=== PATIENT | female | born 1950 | race Hispanic/Latino ===

== ENCOUNTER 2018-05-25 09:30 | Inpatient (IN) | payer MEDICARE ==
[2018-05-25] MEDS ORDERED: NACL 0.9% 1,000 ML, .VANCOMYCIN VIAL 1,000 MG IR ONE (09:49)
[2018-05-25] MEDS ORDERED: NACL 0.45% 1000 ML 1,000 ML IV SCH (10:00)
[2018-05-25 10:17] LABS: Basophils % (Auto) 0.6 % (0.0-1.8); Eosinophils # (Auto) 0.3 K/mm3 (0.0-0.4); Eosinophils % (Auto) 5.3 % (0.0-4.3); Hematocrit 42.1 % (30.3-42.9); Hemoglobin 14.2 gm/dl (10.1-14.3); Lymphocytes # (Auto) 1.5 K/mm3 (1.2-5.4); Lymphocytes % (Auto) 30.1 % (13.4-35.0); Mean Corpuscular HGB Conc 34 % (30-34); Mean Corpuscular Volume 93 fl (79-97); Monocytes # (Auto) 0.3 K/mm3 (0.0-0.8); Monocytes % (Auto) 6.5 % (0.0-7.3); Platelet Count 123 K/mm3 (140-440); Red Blood Count 4.52 M/mm3 (3.65-5.03); Red Cell Distribution Width 14.3 % (13.2-15.2)
[2018-05-25 10:27] LABS: INR 0.95 (0.87-1.13)
[2018-05-25 10:28] LABS: Partial Thromboplastin Time 23.2 Sec. (24.2-36.6)
[2018-05-25 10:33] LABS: BUN/Creatinine Ratio 16; Blood Urea Nitrogen 14 mg/dL (7-17); Calcium 9.3 mg/dL (8.4-10.2); Hemolysis Index 14
--- NOTE | 2018-05-25 11:38 | XRay Report ---
AP CHEST: HISTORY: Wheezing No comparison. Heart size is at the upper limits of normal or mildly increased. Normal mediastinal contour. The lungs are adequately aerated. No evidence for pneumonia, mass or advanced parenchymal disease. No pleural effusion or pneumothorax. The bony structures are grossly intact. IMPRESSION: Borderline heart size. Lungs clear.
--- NOTE | 2018-05-25 11:45 | Consultation ---
History of Present Illness Consult date: 05/25/18 Requesting physician: SAUNDRA TOBIAS Consult reason: congestive heart failure History of present illness: The pt is a 67 YO female with a past medical history of dilated NICMP, chronic systolic heart failure, hypothyroidism, CKD, mild CAD, morbid obesity, statin intolerance, asthma. She is followed in our office by Dr. Urbina. She presented today for scheduled OP AICD implantation. She reported c/o upper respiratory t ract infection symptoms and SOB for the past 2 weeks for which she was prescribed Z-pack. She also c/o wheezing and orthopnea. AICD implantation was cancelled and she has been admitted for further management. She denies any chest pain, palpitations, n/v, diaphoresis, dizziness or syncope. LHC 09/2016 showed very mild CAD, severely dilated LV, EF 25%. Echo 04/2018 showed EF 25-30%, mod MR, mod TR, mild to mod pulm HTN, trace posterior pericardial effusion. Past History Past Medical History: heart failure Medications and Allergies Allergies Allergy/AdvReac Type Severity Reaction Status Date / Time meperidine [From Demerol] Allergy Dizziness Unverified 05/25/18 09:31 Home Medications Medication Instructions Recorded Confirmed Last Taken Type Aspirin [Lo-Dose Aspirin EC] 81 mg PO DAILY 05/25/18 05/25/18 05/24/18 History Benzonatate [Tessalon Perles] 100 mg PO Q8HR 05/25/18 05/25/18 05/24/18 History Budesonide/Formoterol Fumarate 2 puff IH BID 05/25/18 05/25/18 05/25/18 10:00 History [Symbicort 160-4.5 Mcg Inhaler] Carvedilol [Coreg] 3.125 mg PO BID 05/25/18 05/25/18 05/24/18 History Furosemide [Lasix] 20 mg PO Q48HR 05/25/18 05/25/18 05/24/18 History Levothyroxine [Synthroid] 25 mcg PO QAM 05/25/18 05/25/18 05/25/18 04:30 History Loratadine [Claritin] 10 mg PO QHS 05/25/18 05/25/18 05/24/18 History Potassium Chloride [K-Dur] 10 meq PO QDAY 05/25/18 05/25/18 05/24/18 History Active Meds: Active Medications Sodium Chloride (Nacl 0.45% 1000 Ml) 1,000 mls @ 50 mls/hr IV DIRECT SHOSHANA Review of Systems Constitutional: no weight loss, no weight gain, no fever, no chills, no sweats Ears, nose, mouth and throat: no ear pain, no nose pain, no sinus pressure, no sinus pain Cardiovascular: orthopnea, shortness of breath, dyspnea on exertion, no chest pain, no palpitations, no rapid/irregular heart beat, no edema, no syncope, no lightheadedness, no leg edema Respiratory: cough, shortness of breath, dyspnea on exertion, congestion, wheezing, no pain on inspiration Gastrointestinal: no abdominal pain, no nausea, no vomiting, no diarrhea, no constipation, no change in bowel habits Genitourinary Female: no pelvic pain, no flank pain, no dysuria, no urinary frequency, no urgency Musculoskeletal: no neck stiffness, no neck pain, no shooting arm pain, no arm numbness/tingling, no low back pain, no shooting leg pain Integumentary: no rash, no pruritis, no redness, no sores, no wounds Neurological: no head injury, no paralysis, no weakness, no parathesias, no numbness, no tingling, no seizures, no syncope Psychiatric: no anxiety Endocrine: no cold intolerance, no heat intolerance Hematologic/Lymphatic: no easy bruising, no easy bleeding Allergic/Immunologic: wheezing Physical Examination Vital Signs Temp Pulse Resp BP Pulse Ox 98.6 F 92 H 18 133/75 98 05/25/18 10:13 05/25/18 10:13 05/25/18 10:13 05/25/18 10:13 05/25/18 10:13 General appearance: no acute distress HEENT: Positive: PERRL, Normocephaly, Mucus Membranes Moist Neck: Positive: neck supple, trachea midline Cardiac: Positive: Reg Rate and Rhythm, S1/S2 Lungs: Positive: Decreased Breath Sounds, Wheezes Neuro: Positive: Grossly Intact Abdomen: Positive: Soft. Negative: Tender Skin: Negative: Rash, Wound Musculoskeletal: No Pain Extremities: Absent: edema Results 05/25/18 10:12 05/25/18 10:12 Coagulation 05/25/18 Range/Units 10:12 PT 13.1 (12.2-14.9) Sec. INR 0.95 (0.87-1.13) APTT 23.2 L (24.2-36.6) Sec. CBC 05/25/18 Range/Units 10:12 WBC 4.9 (4.5-11.0) K/mm3 RBC 4.52 (3.65-5.03) M/mm3 Hgb 14.2 (10.1-14.3) gm/dl Hct 42.1 (30.3-42.9) % Plt Count 123 L (140-440) K/mm3 Lymph # 1.5 (1.2-5.4) K/mm3 [place] # 0.3 (0.0-0.8) K/mm3 Eos # 0.3 (0.0-0.4) K/mm3 Baso # 0.0 (0.0-0.1) K/mm3 Comprehensive Metabolic Panel 05/25/18 Range/Units 10:12 Sodium 145 (137-145) mmol/L Potassium 4.3 (3.6-5.0) mmol/L Chloride 105.4 (98-107) mmol/L Carbon Dioxide 26 (22-30) mmol/L BUN 14 (7-17) mg/dL Creatinine 0.9 (0.7-1.2) mg/dL Glucose 117 H (65-100) mg/dL Calcium 9.3 (8.4-10.2) mg/dL - Imaging and Cardiology Echo: report reviewed (04/2018 showed EF 25-30%, mod MR, mod TR, mild to mod pulm HTN, trace posterior pericardial effusion. ) Cardiac cath: report reviewed (09/2016 showed very mild CAD, severely dilated LV, EF 25%.) EKG: report reviewed, image reviewed EKG interpretations - Telemetry EKG Rhythm: Sinus Rhythm - EKG Sinus rhythms and dysrhythmias: sinus rhythm Assessment and Plan Admit to tele per hospitalist. Initiate IV diuretics. Resume home cardiac regimen. AICD implantation to be rescheduled for later date as OP. The patient has been seen in conjunction with Dr. Downey who agrees with the assessment and plan of care. - Patient Problems (1) Acute on chronic HFrEF (heart failure with reduced ejection fraction) Current Visit: Yes Status: Acute (2) Upper respiratory infection Current Visit: Yes Status: Acute (3) Cardiomyopathy, dilated, nonischemic Current Visit: Yes Status: Chronic (4) Mild coronary artery disease Current Visit: Yes Status: Chronic (5) CKD (chronic kidney disease) Current Visit: Yes Status: Chronic (6) Hypothyroidism Current Visit: Yes Status: Chronic (7) Obesity Current Visit: Yes Status: Chronic (8) Statin intolerance Current Visit: Yes Status: Chronic
[2018-05-25] MEDS: LASIX ONE ×2 (12:06→12:34)
--- NOTE | 2018-05-25 12:11 | History and Physical Report ---
History of Present Illness Chief complaint: I keep coughing History of present illness: 67 YO Female with MO, CHF, Hypothyroid, Asthma, Allergic rhinitis, CAD admitted directly to the hospital medicine service at the request of [facility]. Pt was scheduled for ICD implantation today, but complained of shortness of breath, and nonproductive cough over the past 1 week. Pt acknowledges shortness of breath, wheezing, nonproductive cough. Pt acknowledges persistent symptoms with outpatient antibiotic therapy over the past 2 weeks. Pt found to have symptoms consistent with Bronchitis. Pt admitted to telemetry and treated with supportive care. Past History Past Medical History: heart failure, hypothyroidism, other (Asthma, MO) Past Surgical History: No surgical history, Other (reviewed) Social history: , lives with family. denies: smoking, alcohol abuse, prescription drug abuse Family history: CAD, hypertension Medications and Allergies Allergies Allergy/AdvReac Type Severity Reaction Status Date / Time meperidine [From Demerol] Allergy Dizziness Verified 05/25/18 14:07 Home Medications Medication Instructions Recorded Confirmed Last Taken Type Aspirin [Lo-Dose Aspirin EC] 81 mg PO DAILY 05/25/18 05/25/18 05/24/18 History Benzonatate [Tessalon Perles] 100 mg PO Q8HR 05/25/18 05/25/18 05/24/18 History Budesonide/Formoterol Fumarate 2 puff IH BID 05/25/18 05/25/18 05/25/18 10:00 History [Symbicort 160-4.5 Mcg Inhaler] Carvedilol [Coreg] 3.125 mg PO BID 05/25/18 05/25/18 05/24/18 History Furosemide [Lasix] 20 mg PO Q48HR 05/25/18 05/25/18 05/24/18 History Levothyroxine [Synthroid] 25 mcg PO QAM 05/25/18 05/25/18 05/25/18 04:30 History Loratadine [Claritin] 10 mg PO QHS 05/25/18 05/25/18 05/24/18 History Potassium Chloride [K-Dur] 10 meq PO QDAY 05/25/18 05/25/18 05/24/18 History Active Meds: Active Medications Aspirin (Halfprin Ec) 81 mg PO DAILY SHOSHANA Carvedilol (Coreg) 3.125 mg PO BID SHOSHANA Furosemide (Lasix) 20 mg IV ONCE ONE Stop: 05/25/18 12:31 Levothyroxine Sodium (Synthroid) 25 mcg PO DAILY@0600 [facility] Loratadine (Claritin) 10 mg PO QHS [facility] Potassium Chloride (K-Dur) 10 meq PO QDAY [facility] Review of Systems Constitutional: no weight loss, no weight gain, no fever, no chills Ears, nose, mouth and throat: no ear pain, no ear discharge, no tinnitis, no decreased hearing, no nose pain, no nasal congestion Breasts: no change in shape Respiratory: cough Gastrointestinal: no abdominal pain, no nausea, no vomiting, no diarrhea Genitourinary Female: no dysmenorrhea, no pelvic pain, no flank pain, no menorrhagia, no dysuria, no urinary frequency Rectal: no pain, no incontinence, no bleeding Musculoskeletal: no neck stiffness, no neck pain, no shooting arm pain, no arm numbness/tingling, no low back pain Integumentary: no rash, no pruritis, no redness, no sores, no wounds Neurological: no transient paralysis, no paralysis, no weakness, no parathesias, no numbness, no tingling Psychiatric: no anxiety, no memory loss, no change in sleep habits, no sleep disturbances, no insomnia, no hypersomnia Endocrine: no cold intolerance, no heat intolerance, no polyphagia, no excessive thirst, no polydipsia, no polyuria Hematologic/Lymphatic: no easy bruising, no easy bleeding Allergic/Immunologic: no urticaria, no allergic rhinitis, no wheezing Exam - Constitutional Vitals: Temp Pulse Resp BP Pulse Ox 98.6 F 92 H 18 133/75 98 05/25/18 10:13 05/25/18 10:13 05/25/18 10:29 05/25/18 10:13 05/25/18 10:13 General appearance: Present: mild distress - EENT Eyes: Present: PERRL ENT: hearing intact, clear oral mucosa - Neck Neck: Present: supple, normal ROM - Respiratory Respiratory effort: normal Respiratory: bilateral: CTA - Cardiovascular Heart Sounds: Present: S1 & S2. Absent: rub, click - Extremities Extremities: pulses symmetrical Extremity abnormal: edema Peripheral Pulses: within normal limits - Abdominal General gastrointestinal: Present: soft, non-tender, non-distended, normal bowel sounds Female genitourinary: Present: normal - Integumentary Integumentary: Present: clear, warm, dry - Musculoskeletal Musculoskeletal: generalized weakness - Psychiatric Psychiatric: appropriate mood/affect, intact judgment & insight - Neurologic Neurologic: CNII-XII intact, moves all extremities Results - Labs CBC & Chem 7: 05/25/18 10:12 05/25/18 10:12 Labs: Abnormal lab results 05/25/18 05/25/18 05/25/18 Range/Units 10:12 10:12 10:12 Plt Count 123 L (140-440) K/mm3 Eos % (Auto) 5.3 H (0.0-4.3) % APTT 23.2 L (24.2-36.6) Sec. Glucose 117 H (65-100) mg/dL Assessment and Plan - Patient Problems (1) CHF (congestive heart failure) Current Visit: Yes Status: Acute Qualifiers: Heart failure type: systolic Heart failure chronicity: acute on chronic Qualified Code(s): I50.23 - Acute on chronic systolic (congestive) heart failure Plan to address problem: Admit to telemetry, Strict I/O, Afterload reduction, diuresis, Chest x ray, cardiology consulted in ED, Pending AICD placement as per cardiology team. (2) Bronchitis Current Visit: Yes Status: Acute Plan to address problem: IV steroid therapy, Iv antibiotic therapy, (3) Hypothyroid Current Visit: Yes Status: Acute Qualifiers: Hypothyroidism type: acquired Qualified Code(s): E03.9 - Hypothyroidism, unspecified Plan to address problem: continue synthroid therapy, (4) Obesity hypoventilation syndrome Current Visit: Yes Status: Acute Plan to address problem: Supplemental oxygen, NIPPV as clinically indicated, nebulizer therapy, (5) DVT prophylaxis Current Visit: Yes Status: Acute Plan to address problem: SCD to BLE while in bed.
[2018-05-25] MEDS ORDERED: LASIX ONE (12:16)
[2018-05-25] MEDS ORDERED: LASIX IV ONE ×2 (12:30)
[2018-05-25] MEDS: COREG PO SCH ×2 (12:31→21:53)
--- NOTE | 2018-05-25 13:20 | Anesthesia Consultation ---
Anesthesia Consult and Med Hx Date of service: 05/25/18 - Airway Anesthetic Teeth Evaluation: Poor ROM Head & Neck: Adequate Mental/Hyoid Distance: Adequate Mallampati Class: Class III Intubation Access Assessment: Possibly Difficult - Pulmonary Exam CTA: No (inspiratory and expiratory wheezing, pt recently had URI less than 2 weeks ) - Pre-Operative Health Status ASA Pre-Surgery Classification: ASA4 Proposed Anesthetic Plan: General (Pt is not clear for anesthesia, inspiratory and expiratory wheezing, EF less than 20%, pt recently had an URI , tx with steroids and antibiotics, will obtain CXR , and reeval) - Pulmonary Hx Smoking: Yes Hx Asthma: Yes - Cardiovascular System Hx Hypertension: Yes - Central Nervous System Hx Psychiatric Problems: No - Endocrine Hx Renal Disease: Yes (Stage III) Hx Hypothyroidism: Yes - Other Systems Hx Cancer: No
[2018-05-25] MEDS: CLARITIN PO SCH (21:53)
[2018-05-25] MEDS: SOLU-Medrol IV SCH (21:54)
[2018-05-26] MEDS: SYNTHROID PO SCH (05:38)
--- NOTE | 2018-05-26 10:22 | Progress Note ---
Assessment and Plan Cont present cardiac regimen, including IV diuretics. Abx and IV steroids per primary. AICD implantation to be rescheduled for later date as OP. Possible d/c home as early as tomorrow. The patient has been seen in conjunction with Dr. Huizar who agrees with the assessment and plan of care. - Patient Problems (1) Acute on chronic HFrEF (heart failure with reduced ejection fraction) Current Visit: Yes Status: Acute (2) Upper respiratory infection Current Visit: Yes Status: Acute (3) Cardiomyopathy, dilated, nonischemic Current Visit: Yes Status: Chronic (4) Mild coronary artery disease Current Visit: Yes Status: Chronic (5) CKD (chronic kidney disease) Current Visit: Yes Status: Chronic (6) Hypothyroidism Current Visit: Yes Status: Chronic (7) Obesity Current Visit: Yes Status: Chronic (8) Statin intolerance Current Visit: Yes Status: Chronic Subjective Date of service: 05/26/18 Principal diagnosis: HF; URI Interval history: pt resting in bed, states SOB and orthopnea improving. still with cough. Objective Last Vital Signs Temp 98.1 F 05/26/18 09:19 Pulse 84 05/26/18 09:19 Resp 18 05/26/18 09:19 BP 111/73 05/26/18 09:19 Pulse Ox 97 05/26/18 09:19 - Physical Examination General: No Apparent Distress HEENT: Positive: PERRL, Normocephaly, Mucus Membranes Moist Neck: Positive: neck supple, trachea midline Cardiac: Positive: Reg Rate and Rhythm, S1/S2 Lungs: Positive: Decreased Breath Sounds, Rhonchi Neuro: Positive: Grossly Intact Abdomen: Positive: Soft. Negative: Tender Skin: Negative: Rash, Wound Musculoskeletal: No Pain Extremities: Absent: edema - Labs and Meds Coagulation 05/25/18 Range/Units 10:12 PT 13.1 (12.2-14.9) Sec. INR 0.95 (0.87-1.13) APTT 23.2 L (24.2-36.6) Sec. Comprehensive Metabolic Panel 05/25/18 Range/Units 10:12 Sodium 145 (137-145) mmol/L Potassium 4.3 (3.6-5.0) mmol/L Chloride 105.4 (98-107) mmol/L Carbon Dioxide 26 (22-30) mmol/L BUN 14 (7-17) mg/dL Creatinine 0.9 (0.7-1.2) mg/dL Glucose 117 H (65-100) mg/dL Calcium 9.3 (8.4-10.2) mg/dL - Imaging and Cardiology EKG: report reviewed, image reviewed Echo: report reviewed (04/2018 showed EF 25-30%, mod MR, mod TR, mild to mod pulm HTN, trace posterior pericardial effusion. ) Cardiac cath: report reviewed (09/2016 showed very mild CAD, severely dilated LV, EF 25%.) - EKG Sinus rhythms and dysrhythmias: sinus rhythm
[2018-05-26] MEDS: K-DUR PO SCH (11:35)
[2018-05-26] MEDS: SOLU-Medrol IV SCH ×2 (11:36→21:50)
[2018-05-26] MEDS: ZITHROMAX 500 MG in NACL 0.9% 250ML 250 ML IV SCH (11:36)
[2018-05-26] MEDS: HALFPRIN EC PO SCH (11:36)
[2018-05-26] MEDS: COREG PO SCH ×2 (11:36→21:50)
--- NOTE | 2018-05-26 17:04 | Progress Note ---
Assessment and Plan Assessment and plan: 67 YO Female with MO, CHF, Hypothyroid, Asthma, Allergic rhinitis, CAD admitted directly to the hospital medicine service at the request of [facility]. Pt was scheduled for ICD implantation today, but complained of shortness of breath, and nonproductive cough over the past 1 week. Pt ackn owledges shortness of breath, wheezing, nonproductive cough. Pt acknowledges persistent symptoms with outpatient antibiotic therapy over the past 2 weeks. Pt found to have symptoms consistent with Bronchitis. Pt admitted to telemetry and treated with supportive care. Continue supportive care taper steroids continue abx as ordered discussed with cardiology team (1) CHF (congestive heart failure) Current Visit: Yes Status: Acute Qualifiers: Heart failure type: systolic Heart failure chronicity: acute on chronic Qualified Code(s): I50.23 - Acute on chronic systolic (congestive) heart failure Plan to address problem: Continue supportive care, Strict I/O, Afterload reduction, diuresis, Chest x ray, Pending AICD placement as per cardiology team. Per cardiology Cont present cardiac regimen, including IV diuretics. Abx and IV steroids per primary. AICD implantation to be rescheduled for later date as OP. Possible d/c home as early as tomorrow. (2) Bronchitis Current Visit: Yes Status: Acute Plan to address problem: IV steroid therapy, Iv antibiotic therapy, Taper steroids (3) Hypothyroid Current Visit: Yes Status: Acute Qualifiers: Hypothyroidism type: acquired Qualified Code(s): E03.9 - Hypothyroidism, unspecified Plan to address problem: continue synthroid therapy, (4) Obesity hypoventilation syndrome Current Visit: Yes Status: Acute Plan to address problem: Supplemental oxygen, NIPPV as clinically indicated, nebulizer therapy, (5)Cardiomyopathy, dilated, nonischemic Current Visit: Yes Status: Chronic as noted above (6)Morbid Obesity weight loss encouraged. (7) DVT prophylaxis Current Visit: Yes Status: Acute Plan to address problem: SCD to BLE while in bed. History Interval history: Patient seen and examined today, still with some shortness of breath. cough, non productive. Although reports some improvement. Hospitalist Physical - Physical exam Narrative exam: VITAL SIGNS: Reviewed. GENERAL: The patient appeared morbidly obese otherwise no acute distress of the intermittent cough noted. Vital signs as documented. HEAD: No signs of head trauma. EYES: Pupils are equal. Extraocular motions intact. EARS: Hearing grossly intact. MOUTH: Oropharynx is normal. NECK: No adenopathy, no JVD. CHEST: Chest with crackles breath sounds bilaterally. No wheezes, rales, or rhonchi. CARDIAC: Regular rate and rhythm. S1 and S2, without murmurs, gallops, or rubs. VASCULAR: No Edema. Peripheral pulses normal and equal in all extremities. ABDOMEN: Soft, without detectable tenderness. No sign of distention. No rebound or guarding, and no masses palpated. Bowel Sounds normal. MUSCULOSKELETAL: Good range of motion of all major joints. Extremities without clubbing, cyanosis or edema. NEUROLOGIC EXAM: Alert and oriented x 3. No focal sensory or strength deficits. Speech normal. Follows commands. PSYCHIATRIC: Mood normal. SKIN: No rash or lesions. - Constitutional Vitals: Temp Pulse Resp BP Pulse Ox 98.1 F 84 18 111/73 97 05/26/18 09:19 05/26/18 09:19 05/26/18 09:19 05/26/18 09:19 05/26/18 09:19 General appearance: Present: mild distress Results - Labs CBC & Chem 7: 05/25/18 10:12 05/25/18 10:12 Labs: Laboratory Last Values WBC 4.9 K/mm3 (4.5-11.0) 05/25/18 10:12 RBC 4.52 M/mm3 (3.65-5.03) 05/25/18 10:12 Hgb 14.2 gm/dl (10.1-14.3) 05/25/18 10:12 Hct 42.1 % (30.3-42.9) 05/25/18 10:12 MCV 93 fl (79-97) 05/25/18 10:12 MCH 31 pg (28-32) 05/25/18 10:12 MCHC 34 % (30-34) 05/25/18 10:12 RDW 14.3 % (13.2-15.2) 05/25/18 10:12 Plt Count 123 K/mm3 (140-440) L 05/25/18 10:12 Lymph % (Auto) 30.1 % (13.4-35.0) 05/25/18 10:12 [place] % (Auto) 6.5 % (0.0-7.3) 05/25/18 10:12 Eos % (Auto) 5.3 % (0.0-4.3) H 05/25/18 10:12 Baso % (Auto) 0.6 % (0.0-1.8) 05/25/18 10:12 Lymph # 1.5 K/mm3 (1.2-5.4) 05/25/18 10:12 [place] # 0.3 K/mm3 (0.0-0.8) 05/25/18 10:12 Eos # 0.3 K/mm3 (0.0-0.4) 05/25/18 10:12 Baso # 0.0 K/mm3 (0.0-0.1) 05/25/18 10:12 Seg Neutrophils % 57.5 % (40.0-70.0) 05/25/18 10:12 Seg Neutrophils # 2.8 K/mm3 (1.8-7.7) 05/25/18 10:12 PT 13.1 Sec. (12.2-14.9) 05/25/18 10:12 INR 0.95 (0.87-1.13) 05/25/18 10:12 APTT 23.2 Sec. (24.2-36.6) L 05/25/18 10:12 Sodium 145 mmol/L (137-145) 05/25/18 10:12 Potassium 4.3 mmol/L (3.6-5.0) 05/25/18 10:12 Chloride 105.4 mmol/L (98-107) 05/25/18 10:12 Carbon Dioxide 26 mmol/L (22-30) 05/25/18 10:12 Anion Gap 18 mmol/L 05/25/18 10:12 BUN 14 mg/dL (7-17) 05/25/18 10:12 Creatinine 0.9 mg/dL (0.7-1.2) 05/25/18 10:12 Estimated GFR > 60 ml/min 05/25/18 10:12 BUN/Creatinine Ratio 16 % 05/25/18 10:12 Glucose 117 mg/dL (65-100) H 05/25/18 10:12 POC Glucose 117 (70-105) H 05/25/18 21:22 Calcium 9.3 mg/dL (8.4-10.2) 05/25/18 10:12 NT-Pro-B Natriuret Pep 3459 pg/mL (0-900) H 05/25/18 10:12 Nutrition/Malnutrition Assess - Dietary Evaluation Nutrition/Malnutrition Findings: Nutrition Notes Start: 05/26/18 10:45 Freq: Status: Active Protocol: Document 05/26/18 10:45 LP (Rec: 05/26/18 10:46 LP [id number]) Nutrition Notes 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 Nutrition Intervention Revisit per MD consult or patient Sign Off request:
[2018-05-26] MEDS: CLARITIN PO SCH (21:51)
[2018-05-27] MEDS: SYNTHROID PO SCH (05:45)
[2018-05-27 06:30] LABS: BUN/Creatinine Ratio 27; Blood Urea Nitrogen 16 mg/dL (7-17); Calcium 9.2 mg/dL (8.4-10.2); Hemolysis Index 12
[2018-05-27 08:15] VITALS: BP 125/71
[2018-05-27] MEDS: HALFPRIN EC PO SCH (09:39)
[2018-05-27] MEDS: COREG PO SCH (09:39)
[2018-05-27] MEDS: K-DUR PO SCH (09:39)
[2018-05-27] MEDS: SOLU-Medrol IV SCH (09:40)
[2018-05-27] MEDS: ZITHROMAX 500 MG in NACL 0.9% 250ML 250 ML IV SCH (09:47)
--- NOTE | 2018-05-27 09:57 | Discharge Summary ---
Providers - Providers Date of Admission: 05/25/18 11:39 Attending physician: SANG CHAMPION MD Primary care physician: PATHOLOGY ASSISTANT Hospitalization Reason for admission: shortness of breath Hospital course: 67 YO Female with MO, CHF, Hypothyroid, Asthma, Allergic rhinitis, CAD admitted directly to the hospital medicine service at the request of [facility]. Pt was scheduled for ICD implantation today, but complained of shortness of breath, and nonproductive cough over the past 1 week. Pt acknowledges shortness of breath, wheezing, nonproductive cough. Pt acknowledges persistent symptoms with outpatient antibiotic therapy over the past 2 weeks. Pt found to have symptoms consistent with Bronchitis. Pt admitted to telemetry and treated with supportive care. Continue supportive care taper steroids continue abx as ordered discussed with cardiology team (1) CHF (congestive heart failure) Current Visit: Yes Status: Acute Qualifiers: Heart failure type: systolic Heart failure chronicity: acute on chronic Qualified Code(s): I50.23 - Acute on chronic systolic (congestive) heart failure Plan to address problem: Continue supportive care, Strict I/O, Afterload reduction, diuresis, Chest x ray , Pending AICD placement as per cardiology team. Per cardiology Patient was sent to cardiology with recommendation for intervention at this point outpatient reevaluation for AICD placement was made. Patient's symptoms has improved today I did recommend light activity on Zosyn by cardiology. On no strenuous activity. (2) Bronchitis Current Visit: Yes Status: Acute Plan to address problem: Antibiotics complete Taper steroids (3) Hypothyroid Current Visit: Yes Status: Acute Qualifiers: Hypothyroidism type: acquired Qualified Code(s): E03.9 - Hypothyroidism, unspecified Plan to address problem: continue synthroid therapy, (4) Obesity hypoventilation syndrome Current Visit: Yes Status: Acute Plan to address problem: Supplemental oxygen, NIPPV as clinically indicated, nebulizer therapy, (5)Cardiomyopathy, dilated, nonischemic Current Visit: Yes Status: Chronic as noted above (6)Morbid Obesity weight loss encouraged. Disposition: DC/TX-06 HOME UNDER HOME [facility] Time spent for discharge: 35 mins Core Measure Documentation - Palliative Care Palliative Care/ Comfort Measures: Not Applicable - Core Measures Any of the following diagnoses?: heart failure - Heart Failure Discharge Requirements DARLYN/ARB for LVSD if EF <40%: No Reason for no DARLYN/ARB: Patient refusal (PT TO DISCUSS WITH CARDIOLOGY) Beta margarette at discharge: Yes Exam - Physical Exam Narrative exam: VITAL SIGNS: Reviewed. GENERAL: The patient appeared morbidly obese otherwise no acute distress of the intermittent cough noted. Vital signs as documented. HEAD: No signs of head trauma. EYES: Pupils are equal. Extraocular motions intact. EARS: Hearing grossly intact. MOUTH: Oropharynx is normal. NECK: No adenopathy, no JVD. CHEST: Chest with crackles breath sounds bilaterally. No wheezes, rales, or rhonchi. CARDIAC: Regular rate and rhythm. S1 and S2, without murmurs, gallops, or rubs. VASCULAR: No Edema. Peripheral pulses normal and equal in all extremities. ABDOMEN: Soft, without detectable tenderness. No sign of distention. No rebound or guarding, and no masses palpated. Bowel Sounds normal. MUSCULOSKELETAL: Good range of motion of all major joints. Extremities without clubbing, cyanosis or edema. NEUROLOGIC EXAM: Alert and oriented x 3. No focal sensory or strength deficits. Speech normal. Follows commands. PSYCHIATRIC: Mood normal. SKIN: No rash or lesions. - Constitutional Vitals: Temp Pulse Resp BP Pulse Ox 98.0 F 68 18 125/71 96 05/27/18 07:54 05/27/18 09:39 05/27/18 07:54 05/27/18 09:39 05/27/18 07:54 Plan Activity: advance as tolerated (no sterneous activity till seen by cardiology), fall precautions Diet: low salt Special Instructions: record daily weights, record daily BP diary Follow up with: PRIMARY CARE, [Primary Care Provider] - 7 Days ESCOBAR PARMAR MD [Staff Physician] - 7 Days CRESCENCIO MACHADO MD [Staff Physician] - 7 Days Prescriptions: Azithromycin [Zithromax Z-NANCY] 0 mg PO DAILY 5 Days tab Prednisone [predniSONE 5 mg (6-Day Pack, 21 Tabs)] 5 mg PO .TAPER #1 tab.ds.pk
== END 2018-05-27 12:00 | disposition home health service (06) | DRG 291 ==
LOC: CATHLABREC 09:30 → 4A 11:39
PROVIDERS: ADMIT Internal Medicine; ATTEND Internal Medicine
DX: I13.0 Hypertensive heart and chronic kidney disease with heart failure and stage 1 through stage 4 chronic kidney disease, or unspecified chronic kidney disease (principal); I50.23 Acute on chronic systolic (congestive) heart failure; Z68.41 Body mass index [BMI] 40.0-44.9, adult; E66.2 Morbid (severe) obesity with alveolar hypoventilation; I42.0 Dilated cardiomyopathy; I27.20 Pulmonary hypertension, unspecified; I08.1 Rheumatic disorders of both mitral and tricuspid valves; N18.3 Chronic kidney disease, stage 3 (moderate); J06.9 Acute upper respiratory infection, unspecified; J45.909 Unspecified asthma, uncomplicated; I25.10 Atherosclerotic heart disease of native coronary artery without angina pectoris; Z82.49 Family history of ischemic heart disease and other diseases of the circulatory system; Z88.8 Allergy status to other drugs, medicaments and biological substances; Z79.82 Long term (current) use of aspirin; Z79.899 Other long term (current) drug therapy; Z82.3 Family history of stroke; J20.9 Acute bronchitis, unspecified; E03.9 Hypothyroidism, unspecified
CPT/HCPCS: 36415; 71045; 80048; 82962; 83880; 85025; 85610; 85730; 93005; 93010; 96374; G0378; J0456; J1940; J2920; J7050

== ENCOUNTER 2018-06-20 09:22 | Observation (INO) | payer MEDICARE ==
[2018-06-20] MEDS ORDERED: NACL 0.45% 1000 ML 1,000 ML IV SCH (10:00)
[2018-06-20 10:16] LABS: Basophils # (Auto) 0.1 K/mm3 (0.0-0.1); Basophils % (Auto) 1.5 % (0.0-1.8); Eosinophils # (Auto) 0.1 K/mm3 (0.0-0.4); Eosinophils % (Auto) 2.9 % (0.0-4.3); Hematocrit 39.3 % (30.3-42.9); Lymphocytes # (Auto) 1.3 K/mm3 (1.2-5.4); Lymphocytes % (Auto) 30.1 % (13.4-35.0); Mean Corpuscular HGB Conc 33 % (30-34); Mean Corpuscular Volume 94 fl (79-97); Monocytes # (Auto) 0.4 K/mm3 (0.0-0.8); Monocytes % (Auto) 8.5 % (0.0-7.3); Platelet Count 101 K/mm3 (140-440); Red Blood Count 4.19 M/mm3 (3.65-5.03); Red Cell Distribution Width 15.1 % (13.2-15.2)
[2018-06-20] MEDS ORDERED: ANCEF/STERILE WATER 2 GM/20 ML 2 GM/20 ML SYRINGE IV ONE (10:18)
[2018-06-20] MEDS ORDERED: NACL 0.9% 500 ML IR ONE ×2 (10:18→14:52)
[2018-06-20] MEDS ORDERED: NACL 0.9% 500 ML 500 ML ONE (10:19)
[2018-06-20 10:29] LABS: INR 1.04 (0.87-1.13)
[2018-06-20 10:30] LABS: Partial Thromboplastin Time 23.4 Sec. (24.2-36.6)
[2018-06-20] MEDS ORDERED: NACL 0.9% 1,000 ML, .VANCOMYCIN VIAL 1,000 MG IR ONE (11:00)
[2018-06-20] MEDS ORDERED: NACL P/F VIAL (10 ML) 10 ML ONE (11:22)
[2018-06-20] MEDS ORDERED: KETALAR ONE (11:22)
[2018-06-20] MEDS ORDERED: DIPRIVAN 10 MG/ML IV ONE ×2 (11:22→16:12)
[2018-06-20] MEDS ORDERED: XYLOCAINE MPF 2% ONE (11:22)
[2018-06-20] MEDS ORDERED: VERSED ONE ×2 (11:22→14:43)
[2018-06-20] MEDS ORDERED: NEO SYNEPHRINE/NS Syringe(OR USE) IV ONE (11:28)
[2018-06-20] MEDS ORDERED: ROBINUL ONE (11:55)
[2018-06-20] MEDS ORDERED: ZOFRAN ONE (11:55)
[2018-06-20] MEDS ORDERED: PROAIR IH ONE (11:55)
--- NOTE | 2018-06-20 12:36 | Anesthesia Consultation ---
Anesthesia Consult and Med Hx Date of service: 06/20/18 - Airway Anesthetic Teeth Evaluation: Edentulous ROM Head & Neck: Adequate Mental/Hyoid Distance: Adequate Mallampati Class: Class II Intubation Access Assessment: Probably Good - Pulmonary Exam CTA: Yes - Cardiac Exam Cardiac Exam: RRR - Pre-Operative Health Status ASA Pre-Surgery Classification: ASA4 Proposed Anesthetic Plan: MAC - Pulmonary Hx Smoking: Yes Hx Asthma: Yes Hx Respiratory Symptoms: Yes (case cancelled on 05/25/18 2/2 acute bronchitis; now resolved) SOB: Yes (chronic w/ exertion; currently at baseline) COPD: No Home Oxygen Therapy: No Hx Sleep Apnea: Yes - Cardiovascular System Hx Hypertension: Yes Hx Coronary Artery Disease: Yes (mild per cardiology note on chart) Hx Heart Attack/AMI: No Hx Percutaneous Transluminal Coronary Angioplasty (PTCA): No Hx Cardia Arrhythmia: No Hx Pacemaker: No Hx Internal Defibrillator: No - Central Nervous System Hx Seizures: No CVA: No Hx Psychiatric Problems: No - Gastrointestinal Hx Gastroesophageal Reflux Disease: No - Endocrine Hx Renal Disease: Yes (CKD 3) Hx Liver Disease: No Hx Insulin Dependent Diabetes: No Hx Non-Insulin Dependent Diabetes: No Hx Hypothyroidism: Yes - Hematic Hx Anemia: No - Other Systems Hx Obesity: Yes - Additional Comments Anesthesia Medical History Comments: Hx nonischemic cardiomyopathy EF 25-30% (TTE 04/2018) scheduled for Bi-V ICD placement for primary arrhythmia prevention.
--- NOTE | 2018-06-20 12:36 | Anesthesia Day of Surgery ---
Anesthesia Day of Surgery - Day of Surgery Patient Examined: Yes Patient H&P Reviewed: Yes Patient is NPO: Yes Cardiac Clearance: Yes
[2018-06-20] MEDS: MARCAINE 0.5% INFILTRATI ONE ×2 (13:46→14:05)
[2018-06-20] MEDS: XYLOCAINE 1% 20 mL ONE ×2 (13:46→14:05)
[2018-06-20] MEDS ORDERED: HEPARIN/NS 5000 UNIT/500ML(CATH LAB) 500 ML IR ONE ×2 (13:52→14:51)
[2018-06-20] MEDS ORDERED: SUBLIMAZE ONE ×2 (14:07→14:41)
[2018-06-20] MEDS ORDERED: AMIDATE IV ONE (14:07)
[2018-06-20] MEDS ORDERED: .VANCOMYCIN VIAL 1,000 MG in NACL 0.9% 1,000 ML IRRIGATION ONE ×2 (14:14→15:17)
[2018-06-20] MEDS ORDERED: NORCO 5/325 PO PRN (17:23)
[2018-06-20] MEDS ORDERED: ZOFRAN IV PRN (19:00)
--- NOTE | 2018-06-20 19:09 | XRay Report ---
FINAL REPORT PROCEDURE: Chest. TECHNIQUE: Chest radiograph anteroposterior view. CPT 63143 HISTORY: ICD placement COMPARISON: No prior studies are available for comparison. FINDINGS: The heart size is mildly enlarged. There is mild tortuosity of the thoracic aorta. The lungs are chris r and well expanded. There are no pleural effusions. There is a left-sided AICD device. The soft tiss ues and regional skeleton are unremarkable. IMPRESSION: Mild cardiomegaly.
[2018-06-20] MEDS: ANCEF/NS 1 GM/50 ML 1 GM/50 ML BAG IV SCH (22:29)
[2018-06-21] MEDS: ANCEF/NS 1 GM/50 ML 1 GM/50 ML BAG IV SCH (05:46)
--- NOTE | 2018-06-21 11:08 | Short Stay Summary ---
Short Stay Documentation Date of service: 06/21/18 - History H&P: obtained from office - Allergies and Medications Current Medications: Allergies meperidine [From Demerol] Allergy (Verified 05/25/18 14:07) Dizziness Home Medications Medication Instructions Recorded Confirmed Last Taken Type Aspirin [Lo-Dose Aspirin EC] 81 mg PO DAILY 05/25/18 06/20/18 06/19/18 History 81mg Budesonide/Formoterol Fumarate 2 puff IH BID 05/25/18 06/20/18 06/20/18 History [Symbicort 160-4.5 Mcg Inhaler] 2 Carvedilol [Coreg] 3.125 mg PO BID 05/25/18 06/20/18 06/19/18 History 3.125mg Furosemide [Lasix] 20 mg PO Q48HR 05/25/18 06/20/18 06/19/18 History 20mg Levothyroxine [Synthroid] 37.5 mcg PO QAM 05/25/18 06/20/18 06/19/18 History 37.5mg Loratadine [Claritin] 10 mg PO QHS 05/25/18 06/20/18 06/19/18 History 10mg Potassium Chloride [K-Dur] 10 meq PO QDAY 05/25/18 06/20/18 06/19/18 History 10meq Active Medications Acetaminophen/Hydrocodone Bitart ([place] 5/325) 1 each PO Q6H PRN PRN Reason: Pain, Moderate (4-6) Last Admin: 06/20/18 21:25 Dose: 1 each Documented by: Sodium Chloride (Nacl 0.45% 1000 Ml) 1,000 mls @ 50 mls/hr IV DIRECT SHOSHANA Last Admin: 06/20/18 10:57 Dose: 50 mls/hr Documented by: Ondansetron HCl (Zofran) 4 mg IV Q6H PRN PRN Reason: Nausea And Vomiting Last Admin: 06/20/18 19:55 Dose: 4 mg Documented by: - Physical exam Integumentary: other (left pectoralis AICD implantation site pressure dressing removed, site covered with telfa and gauze dressing, site c/d/i with no evidence of bleeding or hematoma) - Brief post op/procedure progress note Date of procedure: 06/21/18 Pre-op diagnosis: NICMP Post-op diagnosis: same Procedure: AICD implantation - see dictated operative report Estimated blood loss: none Condition: stable - Hospital course Hospital course: Pt presented for scheduled AICD implantation and successfully underwent implantation. She was admitted for observation overnight. Post-procedure CXR with NAF, device interrogation this AM showed normal device function. She remained clinically and hemodynamically stable throughout hospitalization and is medically stable for discharge home today. - Disposition Condition at discharge: Good Disposition: DC-01 TO HOME OR SELFCARE - Discharge Diagnoses (1) Nonischemic cardiomyopathy Status: Chronic (2) Automatic implantable cardioverter-defibrillator in situ Status: Chronic (3) Chronic HFrEF (heart failure with reduced ejection fraction) Status: Chronic (4) CKD (chronic kidney disease) Status: Chronic (5) Hypothyroidism Status: Chronic Short Stay Discharge Plan Activity: advance as tolerated Diet: low fat, low cholesterol, low salt, diabetic Wound: open to air, keep clean and dry, per your surgeon's advice Follow up with: DAVID MARTINEZ DO [Primary Care Provider] - 7 Days ESCOBAR PARMAR MD [Staff Physician] - 7 Days (post-op device clinic in [facility], 06/28/2018 @ 11:30AM) Prescriptions: HYDROcodone/APAP 5-325 [[place] 5-325 mg TAB] 1 each PO Q6H PRN #10 tablet PRN Reason: Pain, Moderate (4-6)
[2018-06-21 12:53] VITALS: BP 118/56
== END 2018-06-21 16:45 | disposition home or self-care (01) ==
LOC: CATHLABREC 09:22 → 4A 13:24
PROVIDERS: ADMIT Internal Medicine Cardiovascular Disease; ATTEND Internal Medicine Cardiovascular Disease
DX: I42.9 Cardiomyopathy, unspecified (principal)
CPT/HCPCS: 33249; 36415; 71045; 80048; 85025; 85610; 85730; 93005; 93010; 96365; 96366; 96375; C1721; C1769; C1892; C1895; C1898; G0378; J0690; J1644; J2250; J2370; J2405; J2704; J3010; J3370; J7030; J7040; Q9967

== ENCOUNTER 2019-07-29 12:53 | Emergency (ER) | payer MEDICARE ==
--- NOTE | 2019-07-29 13:21 | Emergency Department Report ---
ED Chest Pain HPI - General Stated Complaint: GRACIELA WENT OFF Time Seen by Provider: 07/29/19 13:11 Source: patient, EMS, old records reviewed Limitations: No Limitations - History of Present Illness Initial Comments: This is a 68-year-old female with history of dilated nonischemic cardiomyopathy with AICD in place, CKD, COPD, hypothyroidism who presents after AICD firing. She was in her normal state of health. While singing in pentecostalism she suddenly became lightheaded with shortness of breath. Seconds after the beginning of symptoms, her AICD fired. [place] like a mule kicked her in the chest. She feels much better at this time. She is brought to the emergency department by EMS. 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 with [facility] Complaint: chest pain -: Sudden Onset: other (While singing in pentecostalism) Pain Location: substernal, left chest Severity: severe Consistency: now resolved Improves With: nothing Worsens With: nothing - Related Data Home Medications Medication Instructions Recorded Confirmed Last Taken Aspirin [Lo-Dose Aspirin EC] 81 mg PO DAILY 05/25/18 06/20/18 06/19/18 81 mg Budesonide/Formoterol Fumarate 2 puff IH BID 05/25/18 06/20/18 06/20/18 [Symbicort 160-4.5 Mcg Inhaler] 2 Carvedilol [Coreg] 3.125 mg PO BID 05/25/18 06/20/18 06/19/18 3.125mg Furosemide [Lasix] 20 mg PO Q48HR 05/25/18 06/20/18 06/19/18 20 mg Levothyroxine [Synthroid] 37.5 mcg PO QAM 05/25/18 06/20/18 06/19/18 37.5mg Loratadine (Nf) [Claritin (Nf)] 10 mg PO QHS 05/25/18 06/20/18 06/19/18 10 mg Potassium Chloride [K-Dur] 10 meq PO QDAY 05/25/18 06/20/18 06/19/18 10 meq Previous Rx's Medication Instructions Recorded Last Taken Type HYDROcodone/APAP 5-325 [[place] 1 each PO Q6H PRN #10 tablet 06/21/18 Unknown Rx 5-325 mg TAB] Metoprolol [Lopressor TAB] 50 mg PO BID #60 tablet 07/29/19 Unknown Rx Allergies Allergy/AdvReac Type Severity Reaction Status Date / Time meperidine [From Demerol] Allergy Dizziness Verified 05/25/18 14:07 Heart Score - HEART Score History: Slightly suspicious EKG: Non-specific Age: > 65 Risk factors: 1-2 risk factors Troponin: < normal limit HEART Score: 4 ED Review of Systems ROS: Stated complaint: DEFIB WENT OFF Other details as noted in HPI Comment: All other systems reviewed and negative Constitutional: denies: fever, malaise Respiratory: shortness of breath Cardiovascular: chest pain ED Past Medical Hx - Past Medical History Previous Medical History?: Yes Hx Hypertension: Yes Hx Heart Attack/AMI: No Hx Congestive Heart Failure: Yes Hx Liver Disease: No Hx Renal Disease: Yes (CKD 3) Hx Arthritis: Yes Hx Seizures: No Hx Asthma: Yes Hx COPD: No - Surgical History Past Surgical History?: Yes Hx Pacemaker: No Hx Internal Defibrillator: No Hx Cholecystectomy: Yes - Social History Smoking Status: Never Smoker - Medications Home Medications: Home Medications Medication Instructions Recorded Confirmed Last Taken Type Aspirin [Lo-Dose Aspirin EC] 81 mg PO DAILY 05/25/18 06/20/18 06/19/18 History 81 mg Budesonide/Formoterol Fumarate 2 puff IH BID 05/25/18 06/20/18 06/20/18 History [Symbicort 160-4.5 Mcg Inhaler] 2 Carvedilol [Coreg] 3.125 mg PO BID 05/25/18 06/20/18 06/19/18 History 3.125mg Furosemide [Lasix] 20 mg PO Q48HR 05/25/18 06/20/18 06/19/18 History 20 mg Levothyroxine [Synthroid] 37.5 mcg PO QAM 05/25/18 06/20/18 06/19/18 History 37.5mg Loratadine (Nf) [Claritin (Nf)] 10 mg PO QHS 05/25/18 06/20/18 06/19/18 History 10 mg Potassium Chloride [K-Dur] 10 meq PO QDAY 05/25/18 06/20/18 06/19/18 History 10 meq HYDROcodone/APAP 5-325 [[place] 1 each PO Q6H PRN #10 tablet 06/21/18 Unknown Rx 5-325 mg TAB] Metoprolol [Lopressor TAB] 50 mg PO BID #60 tablet 07/29/19 Unknown Rx ED Physical Exam - General Limitations: No Limitations General appearance: alert, in no apparent distress - Head Head exam: Present: atraumatic, normocephalic - Eye Eye exam: Present: normal appearance - ENT ENT exam: Present: mucous membranes moist - Neck Neck exam: Present: normal inspection, full ROM - Respiratory Respiratory exam: Present: normal lung sounds bilaterally. Absent: respiratory distress, wheezes, rales, rhonchi - Cardiovascular Cardiovascular Exam: Present: regular rate, normal rhythm, normal heart sounds. Absent: systolic murmur, diastolic murmur, rubs, gallop - GI/Abdominal GI/Abdominal exam: Present: soft, normal bowel sounds. Absent: distended, tenderness, guarding, rebound - Extremities Exam Extremities exam: Present: normal inspection - Neurological Exam Neurological exam: Present: alert, oriented X3 - Psychiatric Psychiatric exam: Present: normal affect, normal mood - Skin Skin exam: Present: warm, dry, intact, normal color. Absent: rash ED Course Vital Signs 07/29/19 07/29/19 13:20 15:14 Temperature 98.2 F Pulse Rate 80 71 Respiratory 13 12 Rate Blood Pressure 117/84 Blood Pressure 123/72 [Left] O2 Sat by Pulse 96 99 Oximetry ED Medical Decision Making - Lab Data Result diagrams: 07/29/19 13:22 07/29/19 13:22 Laboratory Results - last 24 hr 07/29/19 07/29/19 13:22 13:22 WBC 4.5 RBC 4.38 Hgb 13.9 Hct 41.7 MCV 95 MCH 32 MCHC 33 RDW 14.0 Plt Count 97 L Lymph % (Auto) 27.7 [place] % (Auto) 7.8 H Eos % (Auto) 1.9 Baso % (Auto) 0.7 Lymph # 1.3 [place] # 0.4 Eos # 0.1 Baso # 0.0 Seg Neutrophils % 61.9 Seg Neutrophils # 2.8 Sodium 138 Potassium 4.0 Chloride 101.0 Carbon Dioxide 23 Anion Gap 18 BUN 20 H Creatinine 1.1 Estimated GFR 49 BUN/Creatinine Ratio 18 Glucose 114 H Calcium 9.6 Phosphorus 3.40 Magnesium 2.10 Troponin T < 0.010 - EKG Data 07/29/19 13:20 EKG obtained 1316 Normal sinus rhythm rate 75 bpm left axis deviation prolonged QTC no ST elevation nonischemic T wave pattern - Radiology Data Radiology results: report reviewed Chest radiograph no acute findings - Medical Decision Making Ms. Coburn presents after AICD placement. [facility] medical representative contacted me after remote interrogation with results. Mrs. Coburn received 1 shock for SVT that reach greater than 220 bpm. The rhythm was present for 30 minutes prior to the AICD firing. The SVT appeared to be narrow complex. I spoke with Dr. uHizar hand bander. He recommended discontinuing Coreg and implementing metoprolol. I have prescribed metoprolol tartrate p.o. twice daily Patient understands to follow-up with her personal hand bander this week Critical care attestation.: If time is entered above; I have spent that time in minutes in the direct care of this critically ill patient, excluding procedure time. ED Disposition Clinical Impression: SVT (supraventricular tachycardia), AICD discharge Disposition: - TO HOME OR SELFCARE Is pt being admited?: No Does the pt Need Aspirin: No Condition: Stable Instructions: Supraventricular Tachycardia (ED) Additional Instructions: Please stop taking Coreg. Please take metoprolol instead your new prescription. Please follow-up with your personal hand bander this week. Prescriptions: Metoprolol [Lopressor TAB] 50 mg PO BID #60 tablet
[2019-07-29 13:37] LABS: Basophils % (Auto) 0.7 % (0.0-1.8); Eosinophils # (Auto) 0.1 K/mm3 (0.0-0.4); Eosinophils % (Auto) 1.9 % (0.0-4.3); Hematocrit 41.7 % (30.3-42.9); Hemoglobin 13.9 gm/dl (10.1-14.3); Lymphocytes # (Auto) 1.3 K/mm3 (1.2-5.4); Lymphocytes % (Auto) 27.7 % (13.4-35.0); Mean Corpuscular HGB Conc 33 % (30-34); Mean Corpuscular Volume 95 fl (79-97); Monocytes # (Auto) 0.4 K/mm3 (0.0-0.8); Monocytes % (Auto) 7.8 % (0.0-7.3); Red Blood Count 4.38 M/mm3 (3.65-5.03)
[2019-07-29 13:39] LABS: Platelet Count 97 K/mm3 (140-440)
[2019-07-29 13:58] LABS: BUN/Creatinine Ratio 18; Blood Urea Nitrogen 20 mg/dL (7-17); Calcium 9.6 mg/dL (8.4-10.2); Hemolysis Index 7
--- NOTE | 2019-07-29 13:59 | XRay Report ---
CHEST 1 VIEW INDICATION / CLINICAL INFORMATION: AICD firing. COMPARISON: 06/20/2018 FINDINGS: SUPPORT DEVICES: AICD appears unchanged HEART / MEDIASTINUM: No significant abnormality. LUNGS / PLEURA: No significant pulmonary or pleural abnormality.. No pneumothorax. ADDITIONAL FINDINGS: No significant additional findings. IMPRESSION: 1. No acute findings. Signer Name: Fritz Casiano MD Signed: 07/29/2019 1:55 PM Workstation Name: [id number]
[2019-07-29] MEDS ORDERED: IBUPROFEN 800 MG TAB PO ONE (14:39)
[2019-07-29 15:15] VITALS: BP 123/72
== END 2019-07-29 16:36 | disposition home or self-care (01) ==
LOC: ED 12:53
DX: T82.897A Other specified complication of cardiac prosthetic devices, implants and grafts, initial encounter (principal); I47.1 Supraventricular tachycardia; I13.0 Hypertensive heart and chronic kidney disease with heart failure and stage 1 through stage 4 chronic kidney disease, or unspecified chronic kidney disease; N18.3 Chronic kidney disease, stage 3 (moderate); I50.9 Heart failure, unspecified; M19.90 Unspecified osteoarthritis, unspecified site; J44.9 Chronic obstructive pulmonary disease, unspecified; E03.9 Hypothyroidism, unspecified; Z79.899 Other long term (current) drug therapy; Z79.82 Long term (current) use of aspirin; Z88.6 Allergy status to analgesic agent; Z90.49 Acquired absence of other specified parts of digestive tract
CPT/HCPCS: 36415; 71045; 80048; 83735; 84100; 84484; 85025; 93005; 93010